=== PATIENT | female | born 1975 | race Caucasian/White ===

== ENCOUNTER → 2016-02-29 | Outpatient (CLI) | payer OTHER ==
[2015-07-06 21:51] VITALS: BP 106/67
--- NOTE | 2016-02-29 17:04 | EEG ---
DATE OF SERVICE: 02/29/2016 EEG NUMBER: 24 OBJECTIVE: This is a 40-year-old female patient with history of seizure. EEG was requested to evaluate seizure activity. METHODS: Twenty electrodes were applied according to the international 10-20 electrode placement system. EKG monitoring, hyperventilation, intermittent photic stimulation, monopolar and bipolar montages are routinely utilized. The record was obtained on a digital system with video monitoring. MEDICATION: No anti-seizure medications. FINDINGS: 1. Background: The patient was recorded in the awake and drowsy states. No sleep state was recorded. The overall background amplitude is 10-30 microvolts. A posterior dominant rhythm of 8 Hz is observed. 2. Abnormalities: No specific epileptiform discharge or electrographic seizure is seen. No focal or diffuse slowing. 3. Activation: Hyperventilation was performed with good efforts and normal response. Intermittent photic stimulation was performed with photic driving. No specific epileptiform discharge or electrographic seizure induced by hyperventilation or intermittent photic stimulation. IMPRESSION: This EEG is a normal study for the awake, drowsy and sleep states. No focal, lateralizing, specific epileptiform discharge or electrographic seizure is seen. However, a normal EEG does not rule out seizure. NANCI EARL MD DR: LISE/ko JOB#: [id number] / [id number] COREY
== END | disposition home or self-care (01) ==
LOC: RT 05:58
PROVIDERS: ATTEND Psychiatry & Neurology Neurology
DX: R56.9 Unspecified convulsions (principal)
CPT/HCPCS: 95816

== ENCOUNTER → 2016-05-23 | Outpatient (CLI) | payer OTHER ==
[2015-07-06 21:51] VITALS: BP 106/67
[2016-05-23 12:59] LABS: BARBITURATES NEG (NEG); BENZODIAZEPINES NEG (NEG); CANNABINOIDS NEG (NEG); COCAINE NEG (NEG); METHADONE NEG (NEG); OPIATES NEG (NEG); PHENCYCLIDINE NEG (NEG)
[2016-05-23 13:13] LABS: ETHANOL, URINE NEG (NEG)
[2016-05-23 13:32] LABS: GFR 62.1; POTASSIUM 4.1 mmol/L (3.5-5.1)
== END | disposition home or self-care (01) ==
LOC: LINQ 12:19
PROVIDERS: ATTEND Psychiatry & Neurology Neurology
DX: R56.9 Unspecified convulsions (principal)
CPT/HCPCS: 36415; 80051; 82565; 84520; G0481

== ENCOUNTER → 2016-06-07 | Outpatient (CLI) | payer OTHER ==
[2015-07-06 21:51] VITALS: BP 106/67
--- NOTE | 2016-06-09 14:29 | EEG ---
DATE OF SERVICE: 06/08/2016 OBJECTIVE: This is a 40-year-old female patient with history of seizure or seizure-like episodes. EEG was requested to evaluate her seizure activity. METHODS: Twenty electrodes were applied according to the international 10-20 electrode placement system. EKG monitoring, hyperventilation and intermittent photic stimulation, monopolar and bipolar montages are routinely utilized. The record was obtained on a digital system with video monitoring. This is a long-term video EEG monitoring, with a total video monitoring and EEG recording time of 24 hours from 06/07/2016 to 06/08/2016. FINDINGS: 1. Background: The patient was recorded in the awake, drowsy, and sleep states. The overall background amplitude is 10-13 microvolts. A posterior dominant rhythm of 8 Hz is observed. 2. Abnormalities: No specific epileptiform discharge or electrographic seizure is seen. No focal or diffuse slowing. A few spikes or spike-contoured waves are noted at occipital region; however, their epileptogenicity cannot be determined in this study. 3. Activation: Hyperventilation was performed with fair efforts and normal response. Intermittent photic stimulation was performed with photic driving. No specific epileptiform discharge or electrographic seizure induced by hyperventilation or intermittent photic stimulation. IMPRESSION: This is a long-term video EEG study with a total video monitoring and EEG recording time of 24 hours from 06/07/2016 to 06/08/2016. This long-term video EEG study is a borderline study for the awake, drowsy, and sleep states. A few spike or spike-contoured waves noted at the right occipital region; however, their epileptogenicity cannot be determined in this study. No focal, lateralizing, specific epileptiform discharges or electrographic seizure is seen. If the patient has further seizures, suggest repeat VEEG. NANCI EARL MD DR: LISE/ko JOB#: [id number] / [id number] COREY
== END | disposition home or self-care (01) ==
LOC: SLPLAB 06:11
PROVIDERS: ATTEND Psychiatry & Neurology Neurology
DX: R56.9 Unspecified convulsions (principal)
CPT/HCPCS: 95951

== ENCOUNTER → 2017-03-01 | Outpatient (CLI) | payer OTHER ==
[2017-03-01 11:25] LABS: BARBITURATES NEG (NEG); BENZODIAZEPINES POS (NEG); CANNABINOIDS NEG (NEG); COCAINE NEG (NEG); METHADONE NEG (NEG); OPIATES NEG (NEG); PHENCYCLIDINE NEG (NEG)
[2017-03-01 11:26] LABS: AMPHETAMINE/METHAMPHETAMINE NEG (NEG); ETHANOL, URINE NEG (NEG)
[2017-03-01 11:35] LABS: BLOOD UREA NITROGEN 16 mg/dL (7-20)
[2017-03-01 11:35] LABS: CREATININE 0.9 mg/dL (0.6-1.0); GFR 69.7
== END | disposition home or self-care (01) ==
LOC: LAB 10:50
DX: R56.9 Unspecified convulsions (principal)
CPT/HCPCS: 36415; 80307; 82565; 84520

== ENCOUNTER → 2017-04-13 | Outpatient (CLI) | payer OTHER | END | disposition home or self-care (01) | LOC: RT 11:33 | DX: R56.9 Unspecified convulsions (principal) | CPT/HCPCS: 95816 ==

== ENCOUNTER 2018-10-31 08:53 | Emergency (ER) | payer OTHER ==
[~2018-10-31] VITALS: Ht 170.2 cm; Wt 65.3 kg
[2018-10-31] MEDS ORDERED: methylPREDNISolone SOD SUCC PF 125 MG/2 ML VIAL. IV ONE (10:15)
[2018-10-31] MEDS ORDERED: diazePAM 5 MG TABLET PO ONE (10:15)
[2018-10-31] MEDS ORDERED: diphenhydrAMINE HCL 25 MG CAPSULE PO ONE (10:15)
[2018-10-31] MEDS ORDERED: PROCHLORPERAZINE 10 MG/2 ML VIAL. IV ONE (10:15)
[2018-10-31 11:05] LABS: BILIRUBIN,URINE NEGATIVE (NEG); CLARITY,URINE CLEAR; COLOR,URINE YELLOW; NITRITE,URINE NEGATIVE (NEG); PROTEIN,URINE NEGATIVE (NEG-TRACE); UROBILINOGEN,URINE 0.2 mg/dL (0.2 mg/dL)
[2018-10-31 11:07] LABS: BASO % 1 % (0-3); EOS # 0.1 x10^3/uL (0.0-0.7); EOS % 3 % (0-3); HEMATOCRIT 39.5 % (36.0-47.0); HEMOGLOBIN 13.4 g/dL (12.0-15.5); LYMPH # 1.8 x10^3/uL (1.0-4.8); LYMPH % 46 % (24-48); MEAN CORPUSCULAR HEMOGLOBIN 33 pg (25-35); MEAN CORPUSCULAR HGB CONC 34 g/dL (31-37); MEAN CORPUSCULAR VOLUME 96 fL (79-100); MONO # 0.2 x10^3/uL (0.0-1.1); MONO % 5 % (0-9); NEUT # 1.8 x10^3/uL (1.8-7.7); NEUT % 46 % (31-73); PLATELET COUNT 164 x10^3/uL (140-400); RED CELL DISTRIBUTION WIDTH 13.3 % (11.5-14.5); WHITE BLOOD COUNT 3.9 x10^3/uL (4.0-11.0)
[2018-10-31 11:14] LABS: AMPHETAMINE/METHAMPHETAMINE NEG (NEG); BARBITURATES NEG (NEG); BENZODIAZEPINES POS (NEG); CANNABINOIDS NEG (NEG); COCAINE NEG (NEG); METHADONE NEG (NEG); OPIATES NEG (NEG); PHENCYCLIDINE NEG (NEG)
[2018-10-31 11:21] LABS: BACTERIA,URINE MOD /HPF (0-FEW); SQUAMOUS EPITHELIAL CELL,UR FEW /LPF
[2018-10-31 11:52] LABS: ANION GAP 13 (6-14); BLOOD UREA NITROGEN 20 mg/dL (7-20); BUN/CREATININE RATIO 22 (6-20); CALCIUM 9.6 mg/dL (8.5-10.1); CARBON DIOXIDE 18 mmol/L (21-32); CHLORIDE 112 mmol/L (98-107); CREATININE 0.9 mg/dL (0.6-1.0); GFR 69.3; GLUCOSE 88 mg/dL (70-99); POTASSIUM 3.9 mmol/L (3.5-5.1); SODIUM 143 mmol/L (136-145)
[2018-10-31 11:59] LABS: ALBUMIN 4.1 g/dL (3.4-5.0); ALBUMIN/GLOBULIN RATIO 1.4 (1.0-1.7); ALK PHOS 53 U/L (46-116); AST (SGOT) 8 U/L (15-37); TOTAL BILIRUBIN 0.2 mg/dL (0.2-1.0)
[2018-10-31] MEDS ORDERED: CONTRAST GIVEN. MC PRN (12:00)
--- NOTE | 2018-10-31 12:00 | PHYS DOC ---
Past Medical History Past Medical History: Anxiety, Bipolar, Depression, Migraines, Seizure, Other Additional Past Medical Histor: EPILEPSY,ENDOMETROSIS Past Surgical History: Knee Replacement, Other Additional Past Surgical Histo: KNEE X 2, LAP SURG FOR ENDOMETROSIS,D&C Additional Information: 1 BLACK & MILD 3 TIMES A WEEK Alcohol Use: Rarely Drug Use: None Adult General Chief Complaint Chief Complaint: HEADACHE HPI HPI Patient is a 42 year old female with history of anxiety, bipolar, seizures, migraine headaches, who presents to the ED today complaining of 10 out of 10 generalized neck and head pain that began 2 weeks ago. Patient states when the headache and neck pain began 2 weeks ago she saw a chiropractor who manipulated her neck, she states after the manipulation the headache intensity increased from a 7 out of 10 to10 out of 10. She states she went back to the chiropractor for another visit, she states the headache and the neck pain continued to intensify after the second chiropractor visit. She is afraid the chiropractor did something bad to her neck or head. Denies any photosensitivity, denies any nausea, vomiting. Review of Systems Review of Systems Constitutional: Denies fever or chills [] Eyes: Denies change in visual acuity, redness, or eye pain [] HENT: Denies nasal congestion or sore throat [] Respiratory: Denies cough or shortness of breath [] Cardiovascular: No additional information not addressed in HPI [] GI: Denies abdominal pain, nausea, vomiting, bloody stools or diarrhea [] : Denies dysuria or hematuria [] Musculoskeletal: Reports neck pain Integument: Denies rash or skin lesions [] Neurologic: Reports headache, denies focal weakness or sensory changes [] All other systems were reviewed and found to be within normal limits, except as documented in this note. Current Medications Current Medications Current Medications Medications (Trade) Dose Ordered Sig/Jaleel Start Time Stop Time Status Last Admin Dose Admin Diazepam (Valium) 5 mg 1X ONCE 10/31/18 10:15 10/31/18 10:16 DC 10/31/18 10:57 5 MG Diphenhydramine HCl (Benadryl) 25 mg 1X ONCE 10/31/18 10:15 10/31/18 10:16 DC 10/31/18 10:57 25 MG Info (CONTRAST GIVEN -- Rx MONITORING) 1 each PRN DAILY PRN 10/31/18 12:00 11/02/18 11:59 Iohexol (Omnipaque 350 Mg/ml) 75 ml 1X ONCE 10/31/18 12:30 10/31/18 12:31 DC 10/31/18 12:14 75 ML Methylprednisolone Sodium Succinate (SOLU-Medrol 125MG VIAL) 125 mg 1X ONCE 10/31/18 10:15 10/31/18 10:16 DC 10/31/18 11:55 125 MG Prochlorperazine Edisylate (Compazine) 10 mg 1X ONCE 10/31/18 10:15 10/31/18 10:16 DC 10/31/18 11:58 10 MG Allergies Allergies Allergies Coded Allergies Type Severity Reaction Last Updated Verified Sulfa (Sulfonamide Antibiotics) Allergy Intermediate "i dont know" 05/20/15 Yes Physical Exam Physical Exam Constitutional: Well developed, well nourished, no acute distress, non-toxic appearance. [] HENT: Normocephalic, atraumatic, bilateral external ears normal, oropharynx moist, no oral exudates, nose normal. [] Eyes: PERRLA, EOMI, conjunctiva normal, no discharge. [] Neck: Diffuse paraspinal muscle tenderness throughout the posterior cervical spine, no midline cervical spine tenderness. Normal range of motion, supple, no stridor. [] Cardiovascular:Heart rate regular rhythm, no murmur [] Lungs & Thorax: Bilateral breath sounds clear to auscultation [] Abdomen: Bowel sounds normal, soft, no tenderness, no masses, no pulsatile masses. [] Skin: Warm, dry, no erythema, no rash. [] Back: No tenderness, no CVA tenderness. [] Extremities: No tenderness, no cyanosis, no clubbing, ROM intact, no edema. [] Neurologic: Alert and oriented X 3, normal motor function, normal sensory function, no focal deficits noted. Cranial nerves II through XII intact Psychologic: Affect normal, judgement normal, mood normal. [] Current Patient Data Vital Signs Vital Signs Date Time Temp Pulse Resp B/P (MAP) Pulse Ox O2 Delivery O2 Flow Rate FiO2 10/31/18 12:43 54 18 99 10/31/18 09:36 97.4 118/79 (92) Room Air 97.4 Lab Values Laboratory Tests Test 10/31/18 09:38 10/31/18 09:42 10/31/18 10:50 10/31/18 11:30 Urine Collection Type U cath Urine Color Yellow Urine Clarity Clear Urine pH 5.0 Urine Specific Vickery 1.020 Urine Protein Negative mg/dL (NEG-TRACE) Urine Glucose (UA) Negative mg/dL (NEG) Urine Ketones (Stick) Negative mg/dL (NEG) Urine Blood Moderate (NEG) Urine Nitrite Negative (NEG) Urine Bilirubin Negative (NEG) Urine Urobilinogen Dipstick 0.2 mg/dL (0.2 mg/dL) Urine Leukocyte Esterase Moderate (NEG) Urine RBC 3-5 /HPF (0-2) Urine WBC 5-10 /HPF (0-4) Urine Squamous Epithelial Cells Few /LPF Urine Bacteria Mod /HPF (0-FEW) Urine Mucus Slight /LPF Urine Opiates Screen Neg (NEG) Urine Methadone Screen Neg (NEG) Urine Barbiturates Neg (NEG) Urine Phencyclidine Screen Neg (NEG) Urine Amphetamine/Methamphetamine Neg (NEG) Urine Benzodiazepines Screen Pos (NEG) Urine Cocaine Screen Neg (NEG) Urine Cannabinoids Screen Neg (NEG) Urine Ethyl Alcohol Neg (NEG) POC Urine HCG, Qualitative Hcg negative (Negative) White Blood Count 3.9 x10^3/uL (4.0-11.0) L Red Blood Count 4.10 x10^6/uL (3.50-5.40) Hemoglobin 13.4 g/dL (12.0-15.5) Hematocrit 39.5 % (36.0-47.0) Mean Corpuscular Volume 96 fL (79-100) Mean Corpuscular Hemoglobin 33 pg (25-35) Mean Corpuscular Hemoglobin Concent 34 g/dL (31-37) Red Cell Distribution Width 13.3 % (11.5-14.5) Platelet Count 164 x10^3/uL (140-400) Neutrophils (%) (Auto) 46 % (31-73) Lymphocytes (%) (Auto) 46 % (24-48) Monocytes (%) (Auto) 5 % (0-9) Eosinophils (%) (Auto) 3 % (0-3) Basophils (%) (Auto) 1 % (0-3) Neutrophils # (Auto) 1.8 x10^3/uL (1.8-7.7) Lymphocytes # (Auto) 1.8 x10^3/uL (1.0-4.8) Monocytes # (Auto) 0.2 x10^3/uL (0.0-1.1) Eosinophils # (Auto) 0.1 x10^3/uL (0.0-0.7) Basophils # (Auto) 0.0 x10^3/uL (0.0-0.2) Sodium Level 143 mmol/L (136-145) Potassium Level 3.9 mmol/L (3.5-5.1) Chloride Level 112 mmol/L (98-107) H Carbon Dioxide Level 18 mmol/L (21-32) L Anion Gap 13 (6-14) Blood Urea Nitrogen 20 mg/dL (7-20) Creatinine 0.9 mg/dL (0.6-1.0) Estimated GFR (Cockcroft-Gault) 69.3 BUN/Creatinine Ratio 22 (6-20) H Glucose Level 88 mg/dL (70-99) Calcium Level 9.6 mg/dL (8.5-10.1) Total Bilirubin 0.2 mg/dL (0.2-1.0) Aspartate Amino Transferase (AST) 8 U/L (15-37) L Alanine Aminotransferase (ALT) < 6 U/L (14-59) L Alkaline Phosphatase 53 U/L (46-116) Total Protein 7.0 g/dL (6.4-8.2) Albumin 4.1 g/dL (3.4-5.0) Albumin/Globulin Ratio 1.4 (1.0-1.7) Ethyl Alcohol Level < 10 mg/dL (0-10) Laboratory Tests 10/31/18 10:50 Laboratory Tests 10/31/18 11:30 EKG EKG [] Radiology/Procedures Radiology/Procedures []ROCEDURE: CT ANGIOGRAPHY HEAD AND NECK Examination: CT ANGIOGRAPHY HEAD AND NECK History: Head and neck pain after seeing a chiropractor 2 weeks ago. Comparison/Correlation: 07/06/2015 CT head without contrast FINDINGS: Axial images of the head and neck were obtained following IV contrast arteriography protocol. Volume rendered and MIPS images were provided. Sagittal and coronal reformatted images were provided. Angiographic findings: The aortic arch has a typical branching pattern. There is no arch vessel stenosis. Both common carotid arteries are patent without stenosis. Both internal carotid arteries are patent without stenosis. The external carotid systems are patent. The vertebral arteries are patent. Right vertebral artery is diminutive. Its distal extent is hypoplastic and terminates as a posterior inferior cerebellar artery. The basilar artery is patent. Both posterior cerebral arteries are patent. The posterior communicating arteries are visualized. The intracranial internal carotid arteries demonstrate no stenosis. The middle cerebral arteries are patent. The anterior cerebral arteries are patent. The anterior communicating artery is visualized. Nonangiographic findings: There is no intracranial hemorrhage identified on arterial phase images provided multiple. Little-white differentiation is preserved. The ventricles are normal in size and position. The paranasal sinuses appear clear. The orbits are unremarkable. The temporal bones are unremarkable. Bone windows reveal no suspicious lesions. The lung apices demonstrate no acute abnormality. The parotid glands and submandibular glands are unremarkable. The thyroid gland demonstrates no suspicious lesions. There are no laryngeal or pharyngeal masses. There are no pathologically enlarged lymph nodes. IMPRESSION: No evidence of significant stenosis, dissection, or aneurysm. PQRS Compliance Statement - Stenosis calculations for CT, MR and conventional angiography are based upon measurement of the distal ICA diameter in accordance with the NASCET methodology. Stenosis calculations for carotid ultrasound studies are derived from validated velocity criteria which are known to correlate with the NASCET methodology. *One or more of the following individualized dose reduction techniques were utilized for this examination: 1. Automated exposure control. 2. Adjustment of the mA and/or kV according to patient size. 3. Use of iterative reconstruction technique. Electronically signed by: Cyrus Mcclendon MD (10/31/2018 12:56 PM) [facility] DICTATED and SIGNED BY: CYRUS MCCLENDON MD DATE: 10/31/18 2574 Course & Med Decision Making Course & Med Decision Making Pertinent Labs and Imaging studies reviewed. (See chart for details) This is a 42-year-old female patient who presents to the ED today complaining of pain generalized to her head and neck that began 2 weeks ago and got worse a fter having chiropractor manipulate her neck. CT angiogram neck and head are negative for any acute findings. CBC with a WBC of 3.9, CMP would not acute findings, urine analysis is noted for UTI. Dis charged on cephalexin. Given prescription for Imitrex for her pain as well as cyclobenzaprine and medrol dose park. F/u with PCP next week Dragon Disclaimer Diaz Disclaimer This electronic medical record was generated, in whole or in part, using a voice recognition dictation system. Departure Departure Impression: Primary Impression: Migraine headache Additional Impressions: Neck pain UTI (urinary tract infection) Disposition: 01 HOME, SELF-CARE Condition: STABLE Referrals: ALMITA LI MD (PCP) follow up next week Patient Instructions: Migraine Headache, Urinary Tract Infection Additional Instructions: You were evaluated in the emergency room for headache and neck pain, your CAT scan of the head and neck are negative for any acute findings. Take the prescribed medications as ordered. Follow-up with your own doctor in 1-2 weeks. Scripts Cyclobenzaprine Hcl (CYCLOBENZAPRINE HCL) 10 Mg Tablet 1 TAB PO TID, #30 TAB Prov: ADRY ELLISON APRN 10/31/18 Methylprednisolone (MEDROL) 4 Mg Tab.ds.pk 1 PKG PO UD, #1 PKG Prov: ADRY ELLISON APRN 10/31/18 Sumatriptan Succinate (IMITREX) 50 Mg Tablet 1 TAB PO UD, #9 TAB 1 Refill Prov: ADRY ELLISON APRN 10/31/18 Problem Qualifiers Primary Impression: Migraine headache Migraine type: unspecified Status migrainosus presence: without status migrainosus Intractability: not intractable Qualified Codes: G43.909 - Migraine, unspecified, not intractable, without status migrainosus Additional Impressions: UTI (urinary tract infection) Urinary tract infection type: site unspecified Hematuria presence: without hematuria Qualified Codes: N39.0 - Urinary tract infection, site not specified ADRY ELLISON APRN Oct 31, 2018 12:00
[2018-10-31 12:01] LABS: ALT (SGPT) < 6 U/L (14-59)
[2018-10-31] MEDS ORDERED: IOHEXOL 350 MG/ML 100 ML VIAL. IV ONE (12:30)
--- NOTE | 2018-10-31 12:58 | RAD ---
Examination: CT ANGIOGRAPHY HEAD AND NECK History: Head and neck pain after seeing a chiropractor 2 weeks ago. Comparison/Correlation: 07/06/2015 CT head without contrast FINDINGS: Axial images of the head and neck were obtained following IV contrast arteriography protocol. Volume rendered and MIPS images were provided. Sagittal and coronal reformatted images were provided. Angiographic findings: The aortic arch has a typical branching pattern. There is no arch vessel stenosis. Both common carotid arteries are patent without stenosis. Both internal carotid arteries are patent without stenosis. The external carotid systems are patent. The vertebral arteries are patent. Right vertebral artery is diminutive. Its distal extent is hypoplastic and terminates as a posterior inferior cerebellar artery. The basilar artery is patent. Both posterior cerebral arteries are patent. The posterior communicating arteries are visualized. The intracranial internal carotid arteries demonstrate no stenosis. The middle cerebral arteries are patent. The anterior cerebral arteries are patent. The anterior communicating artery is visualized. Nonangiographic findings: There is no intracranial hemorrhage identified on arterial phase images provided multiple. Little-white differentiation is preserved. The ventricles are normal in size and position. The paranasal sinuses appear clear. The orbits are unremarkable. The temporal bones are unremarkable. Bone windows reveal no suspicious lesions. The lung apices demonstrate no acute abnormality. The parotid glands and submandibular glands are unremarkable. The thyroid gland demonstrates no suspicious lesions. There are no laryngeal or pharyngeal masses. There are no pathologically enlarged lymph nodes. IMPRESSION: No evidence of significant stenosis, dissection, or aneurysm. PQRS Compliance Statement - Stenosis calculations for CT, MR and conventional angiography are based upon measurement of the distal ICA diameter in accordance with the NASCET methodology. Stenosis calculations for carotid ultrasound studies are derived from validated velocity criteria which are known to correlate with the NASCET methodology. *One or more of the following individualized dose reduction techniques were utilized for this examination: 1. Automated exposure control. 2. Adjustment of the mA and/or kV according to patient size. 3. Use of iterative reconstruction technique. Electronically signed by: Cyrus Chirinos MD (10/31/2018 12:56 PM) [facility]
[2018-10-31] MEDS ORDERED: METH4TAB2 PO (13:55)
[2018-10-31] MEDS ORDERED: CYCL10TA2 PO (13:55)
[2018-10-31] MEDS ORDERED: SUMA50TA3 PO (13:55)
[2018-10-31] MEDS ORDERED: SUMAtriptan SUCCINATE 25 MG TABLET PO ONE (14:00)
[2018-10-31 14:13] VITALS: BP 113/73
== END 2018-10-31 14:23 | disposition home or self-care (01) ==
LOC: ER 08:53
DX: G43.909 Migraine, unspecified, not intractable, without status migrainosus (principal); N39.0 Urinary tract infection, site not specified; M54.2 Cervicalgia; G40.909 Epilepsy, unspecified, not intractable, without status epilepticus; F31.9 Bipolar disorder, unspecified; Z88.2 Allergy status to sulfonamides
CPT/HCPCS: 36415; 70496; 70498; 80053; 80307; 81001; 81025; 85025; 96374; 96375; 99285; G0480; J0780; J2930; Q0163; Q9967

== ENCOUNTER 2019-01-20 11:31 | Emergency (ER) | payer OTHER ==
[~2019-01-20] VITALS: Ht 170.2 cm; Wt 63.5 kg
[~2019-01-20 11:31] MED LIST: CYCL10TA2 PO; METH4TAB2 PO; SUMA50TA3 PO
[2019-01-20 12:24] VITALS: BP 130/78
[2019-01-20] MEDS ORDERED: KETOROLAC 30 MG/ML VIAL. IM STA (12:24)
[2019-01-20] MEDS ORDERED: HYDROcodone/APAP 5/325MG 1 TAB TABLET PO STA (12:24)
--- NOTE | 2019-01-20 12:30 | PHYS DOC ---
Past Medical History Past Medical History: Anxiety, Bipolar, Depression, Migraines, Seizure, Other Additional Past Medical Histor: EPILEPSY,ENDOMETROSIS Past Surgical History: Knee Replacement, Other Additional Past Surgical Histo: KNEE X 2, LAP SURG FOR ENDOMETROSIS,D&C Alcohol Use: Rarely Drug Use: None Adult General Chief Complaint Chief Complaint: RIB PAIN HPI HPI Patient is a 43 year old female who presents with with a fall that happened around 8:00 this morning. The patient states she fell down 2-3 steps after tripping over her cat. The patient states that she has severe pain when she takes a deep breath and rates her pain as 10 in severity and sharp. She states she took 400 mg of Advil after this happened. She states this is not helped. She states that the location of the pain is left rib pain. Review of Systems Review of Systems Constitutional: Denies fever or chills [] Eyes: Denies change in visual acuity, redness, or eye pain [] HENT: Denies nasal congestion or sore throat [] Respiratory: Reports rib pain when takes deep breath. Cardiovascular: No additional information not addressed in HPI [] GI: Denies abdominal pain, nausea, vomiting, bloody stools or diarrhea [] : Denies dysuria or hematuria [] Musculoskeletal: Denies back pain or joint pain [] Integument: Denies rash or skin lesions [] Neurologic: Denies headache, focal weakness or sensory changes [] Endocrine: Denies polyuria or polydipsia [] Complete systems were reviewed and found to be within normal limits, except as documented in this note. Current Medications Current Medications Current Medications Medications (Trade) Dose Ordered Sig/Jaleel Start Time Stop Time Status Last Admin Dose Admin Acetaminophen/ Hydrocodone Bitart (Lortab 5/325) 1 tab 1X STAT 01/20/19 12:24 01/20/19 12:27 DC 01/20/19 12:53 1 TAB Ketorolac Tromethamine (Toradol 30mg Vial) 30 mg 1X STAT 01/20/19 12:24 01/20/19 12:27 DC 01/20/19 12:54 30 MG Allergies Allergies Allergies Coded Allergies Type Severity Reaction Last Updated Verified Sulfa (Sulfonamide Antibiotics) Allergy Intermediate "i dont know" 05/20/15 Yes Physical Exam Physical Exam Constitutional: Well developed, well nourished, no acute distress, non-toxic appearance. [] Eyes: PERRLA, EOMI, conjunctiva normal, no discharge. [] Neck: Normal range of motion, no tenderness, supple, no stridor. [] Cardiovascular:Heart rate regular rhythm, no murmur [] Lungs & Thorax: Bilateral breath sounds clear to auscultation [] Back: Tenderness to L rib. Neurologic: Alert and oriented X 3, normal motor function, normal sensory function, no focal deficits noted. [] Psychologic: Affect normal, judgement normal, mood normal. [] Current Patient Data Vital Signs Vital Signs Date Time Temp Pulse Resp B/P (MAP) Pulse Ox O2 Delivery O2 Flow Rate FiO2 01/20/19 12:24 97.7 65 18 130/78 (95 100 Room Air 97.7 EKG EKG [] Radiology/Procedures Radiology/Procedures [][facility] [address] [place] [address] IMAGING REPORT Signed PATIENT: CAREN RASMUSSEN ACCOUNT: [id number] : 1975 LOCATION: ER AGE: 43 SEX: F EXAM STATUS: REG ER ORD. PHYSICIAN: ALISIA JUAREZ APRN REASON: fall PROCEDURE: RIBS LEFT AND PA CHEST EXAM: Chest and left ribs, 5 views. HISTORY: Fall. Pain. COMPARISON: None. FINDINGS: A frontal view of the chest and 4 views of the left ribs are obtained. There is no infiltrate, pleural effusion or pneumothorax. The heart is normal in size. No displaced fracture is seen. IMPRESSION: No acute pulmonary or osseous finding. Electronically signed by: Monica Chong MD (01/20/2019 1:16 PM) [facility] DICTATED and SIGNED BY: MONICA CHONG MD DATE: 01/20/19 8989 Course & Med Decision Making Course & Med Decision Making Pertinent Labs and Imaging studies reviewed. (See chart for details) Will give supportive care. Will also get Chest x-ray and give incentive spirometer. Chest x-ray is negative. Will write script for [place] for pain. Dragon Disclaimer Dragon Disclaimer This electronic medical record was generated, in whole or in part, using a voice recognition dictation system. Departure Departure Impression: Primary Impression: Fall Disposition: 01 HOME, SELF-CARE Condition: STABLE Referrals: JUSTICE RIDER MD (PCP) Patient Instructions: Fall Prevention and Home Safety Additional Instructions: Thank you for visiting [facility]. We appreciate you trusting us with your care. If any additional problems come up don't hesitate to return to visit us. Please follow up with your primary care provider so they can plan additional care if needed and know about the problem that you had. If symptoms worsen come back to the Emergency Department. Any concerning symptoms that start such as chest pain, shortness of air, weakness or numbness on one side of the body, running high fevers or any other concerning symptoms return to the ER. Please fill your medications at any pharmacy and follow the prescription instructions. Please use the incentive spirometer as directed to prevent from developing pneumonia. Scripts Hydrocodone/Apap 5-325 (NORCO 5-325 TABLET) 1 Each Tablet 1 TAB PO PRN Q6HRS PRN for PAIN for 3 Days, #10 TAB 0 Refills Prov: ALISIA JUAREZ APRN 01/20/19 Problem Qualifiers Primary Impression: Fall Encounter type: initial encounter Qualified Codes: W19.XXXA - Unspecified fall, initial encounter ALISIA JUAREZ APRN Jan 20, 2019 12:30
--- NOTE | 2019-01-20 13:19 | RAD ---
EXAM: Chest and left ribs, 5 views. HISTORY: Fall. Pain. COMPARISON: None. FINDINGS: A frontal view of the chest and 4 views of the left ribs are obtained. There is no infiltrate, pleural effusion or pneumothorax. The heart is normal in size. No displaced fracture is seen. IMPRESSION: No acute pulmonary or osseous finding. Electronically signed by: Monica Vieyra MD (01/20/2019 1:16 PM) [place] [id number]
[2019-01-20] MEDS ORDERED: HYDR-3164 PO (13:38)
== END 2019-01-20 13:58 | disposition home or self-care (01) ==
LOC: ER 11:31
DX: R07.81 Pleurodynia (principal); G89.11 Acute pain due to trauma; F41.9 Anxiety disorder, unspecified; F31.9 Bipolar disorder, unspecified; G43.909 Migraine, unspecified, not intractable, without status migrainosus; G40.909 Epilepsy, unspecified, not intractable, without status epilepticus; Z88.2 Allergy status to sulfonamides; W18.09XA Striking against other object with subsequent fall, initial encounter; Y93.89 Activity, other specified; Y92.89 Other specified places as the place of occurrence of the external cause; Y99.8 Other external cause status
CPT/HCPCS: 71101; 96372; 99284; G0238; J1885

== ENCOUNTER → 2019-01-23 | Outpatient (CLI) | payer OTHER ==
[2019-01-20 12:24] VITALS: BP 130/78
[~2019-01-23] MED LIST changes: +HYDR-3164 PO
--- NOTE | 2019-01-23 16:54 | RAD ---
DATE: 01/23/2019. EXAM: DIGITAL DIAGNOSTIC BILATERAL, BREAST RIGHT. HISTORY: Palpable focus at the right o'clock position. COMPARISON: This is the baseline study. This study was interpreted with the benefit of Computerized Aided Detection (CAD). FINDINGS: Breast Density: DENSE The breast parenchyma is dense, which could reduce the sensitivity of mammography. Breast parenchyma level density D.. There is a partially circumscribed, partially obscured nodule in the right subareolar distribution best seen on the MLO projection. There are no suspicious microcalcifications or architectural distortion. There is no clearly suspicious finding on the left. Sonography of the right breast reveals multiple benign cysts. At the 8:00 position at the site of concern, a mildly complicated cyst measures 5 x 5 x 3 m. The palpable focus may not correlate with this lesion, but rather a surrounding region of dense normal parenchyma. Other cysts scattered elsewhere measure up to 8 x 7 mm at the 1:00 position 3 cm from the nipple, and 10 x 7 mm at the 9:00 retroareolar position. BI-RADS CATEGORY: 2 BENIGN FINDING(S). RECOMMENDED FOLLOW-UP: 12M 12 MONTH FOLLOW-UP. 1. Recommend ongoing clinical follow-up of palpable foci. Screening mammography can be performed in one year. PQRS compliance statement: Patient information was entered into a reminder system with a target due date 01/24/2020 for the next mammogram. Mammography is a sensitive method for finding small breast cancers, but it does not detect them all and is not a substitute for careful clinical examination. A negative mammogram does not negate a clinically suspicious finding and should not result in delay in biopsying a clinically suspicious abnormality. "Our facility is accredited by the [employer] Mammography [employer]."
== END | disposition home or self-care (01) ==
LOC: MAMMO 10:24
PROVIDERS: ATTEND Family Medicine
DX: N60.01 Solitary cyst of right breast (principal)
CPT/HCPCS: 76641; 77066

== ENCOUNTER → 2020-03-08 | Outpatient (CLI) | payer OTHER ==
--- NOTE | 2020-03-09 14:02 | RAD ---
DATE: 03/08/2020 3:16 PM EXAM: DIGITAL SCREEN BILAT W/CAD HISTORY: Screening COMPARISON: 01/23/2019 Bilateral full field craniocaudal and mediolateral oblique images were obtained using digital technique. This study was interpreted with the benefit of Computerized Aided Detection (CAD). FINDINGS: Breast Density: DENSE The breast Parenchyma is dense, which could reduce the sensitivity of mammography. Breast parenchyma level density D. No suspicious masses, microcalcifications or architectural distortion is present to suggest malignancy in either breast. The visualized axillae are unremarkable. IMPRESSION: No mammographic evidence of malignancy. BI-RADS CATEGORY: 1 NEGATIVE RECOMMENDED FOLLOW-UP: 12M 12 MONTH FOLLOW-UP Annual screening mammography is recommended, unless clinically indicated sooner based on symptoms or change in physical exam. PQRS compliance statement: Patient information was entered into a reminder system with a target due date for the next mammogram. Mammography is a sensitive method for finding small breast cancers, but it does not detect them all and is not a substitute for careful clinical examination. A negative mammogram does not negate a clinically suspicious finding and should not result in delay in biopsying a clinically suspicious abnormality. "Our facility is accredited by the [employer] Mammography [employer]."
== END ==
LOC: MAMMO 15:12
PROVIDERS: ATTEND Family Medicine
DX: Z12.31 Encounter for screening mammogram for malignant neoplasm of breast (principal)
CPT/HCPCS: 77067

== ENCOUNTER 2021-02-16 14:00 | Emergency (ER) | payer OTHER ==
[~2021-02-16] VITALS: Ht 165.1 cm; Wt 75.0 kg
[~2021-02-16 14:00] MED LIST changes: +CYCL10TA19 PO; -CYCL10TA2 PO
--- NOTE | 2021-02-16 14:59 | RAD ---
Chest radiograph 02/16/2021 2:42 PM INDICATION: Chest pain COMPARISON: 01/20/2019 TECHNIQUE: Frontal and lateral views of the chest are provided. FINDINGS: The cardiomediastinal silhouette is within normal limits. There are no pleural effusions. There is no pulmonary vascular congestion. There is no pneumothorax. The lungs are clear. No significant osseous abnormality is identified. IMPRESSION: No acute cardiopulmonary process. Electronically signed by: Myra Penny MD (02/16/2021 2:56 PM) [facility]
--- NOTE | 2021-02-16 15:19 | PHYS DOC ---
Past Medical History Past Medical History: Anxiety, Bipolar, Depression, Migraines, Seizure, Other Additional Past Medical Histor: EPILEPSY,ENDOMETROSIS (AMI MORFIN APRN) Past Surgical History: No Surgical History Additional Past Surgical Histo: KNEE X 2, LAP SURG FOR ENDOMETROSIS,D&C (AMI MORFIN APRN) Smoking Status: Current Every Day Smoker Alcohol Use: Rarely Drug Use: None (AMI MORFIN APRN) General Adult EDM: Chief Complaint: CHEST PAIN HPI: HPI: Patient is a 45-year-old female that presents today with upper chest wall pain. Patient states the pain started early this morning after she experienced a seizure. Patient states she has seizures on a similar regular basis she said her last seizure was about 4 months ago but they have been adjusting her medications she sees Dr. Tyler in the office. She states that after her seizure she has been experiencing upper chest wall pain. She does state that she tested positive for influenza A last week did test negative for COVID 19, and states that she has been doing a lot of coughing over the past 7 days. Patient denies fever and chills or shortness of air. Patient does state that she has had 2 of her COVID vaccines she has not had the booster at this time she is not sure if she is 6 months out from her last injection. (AMI MORFIN APRN) Review of Systems: Review of Systems: Constitutional: Denies fever or chills. [] Eyes: Denies change in visual acuity. [] HENT: Denies nasal congestion or sore throat. [] Respiratory: Cough Cardiovascular: Upper chest wall pain GI: Denies abdominal pain, nausea, vomiting, bloody stools or diarrhea. [] : Denies dysuria. [] Musculoskeletal: Denies back pain or joint pain. [] Integument: Denies rash. [] Neurologic: Denies headache, focal weakness or sensory changes. [] Endocrine: Denies polyuria or polydipsia. [] Lymphatic: Denies swollen glands. [] Psychiatric: Denies depression or anxiety. [] (AMI MORFIN APRN) Heart Score: C/O Chest Pain: N/A Risk Factors: Risk Factors: DM, Current or recent (<one month) smoker, HTN, HLP, family history of CAD, obesity. Risk Scores: Score 0 - 3: 2.5% MACE over next 6 weeks - Discharge Home Score 4 - 6: 20.3% MACE over next 6 weeks - Admit for Clinical Observation Score 7 - 10: 72.7% MACE over next 6 weeks - Early Invasive Strategies (AMI MORFIN APRN) Allergies: Allergies: Allergies Coded Allergies Type Severity Reaction Last Updated Verified Sulfa (Sulfonamide Antibiotics) Allergy Intermediate "i dont know" 05/20/15 Yes (AMI MORFIN APRN) Physical Exam: PE: Constitutional: Well developed, well nourished, no acute distress, non-toxic appearance. [] HENT: Normocephalic, atraumatic, bilateral external ears normal, oropharynx moist, no oral exudates, nose normal. [] Eyes: PERRLA, EOMI, conjunctiva normal, no discharge. [] Neck: Normal range of motion, no tenderness, supple, no stridor. [] Cardiovascular:Heart rate regular rhythm, no murmur [] Lungs & Thorax: Bilateral breath sounds clear to auscultation, reproducible chest wall pain with deep inspiration and with palpation to the upper chest area. [] Abdomen: Bowel sounds normal, soft, no tenderness, no masses, no pulsatile masses. [] Skin: Warm, dry, no erythema, no rash. [] Back: No tenderness, no CVA tenderness. [] Extremities: No tenderness, no cyanosis, no clubbing, ROM intact, no edema. [] Neurologic: Alert and oriented X 3, normal motor function, normal sensory function, no focal deficits noted. [] Psychologic: Affect normal, judgement normal, mood anxious. [] (AMI MORFIN BIOCHEMISTRY PROFESSOR) Current Patient Data: Vital Signs: Vital Signs Date Time Temp Pulse Resp B/P (MAP) Pulse Ox O2 Delivery O2 Flow Rate FiO2 02/16/21 15:58 94 14 113/63 (80) 99 Room Air 02/16/21 15:33 108 16 113/63 (80) 100 Room Air 02/16/21 14:16 98.2 107 18 129/78 (95) 98 Room Air 98.2 Vital Signs Date Time Temp Pulse Resp B/P (MAP) Pulse Ox O2 Delivery O2 Flow Rate FiO2 02/16/21 14:16 98.2 107 18 129/78 (95) 98 Room Air 98.2 (AMI MORFIN APRN) EKG: EKG: [] (AMI MORFIN APRN) Radiology/Procedures: Radiology/Procedures: REASON: chest pain PROCEDURE: CHEST PA & LATERAL Chest radiograph 02/16/2021 2:42 PM INDICATION: Chest pain COMPARISON: 01/20/2019 TECHNIQUE: Frontal and lateral views of the chest are provided. FINDINGS: The cardiomediastinal silhouette is within normal limits. There are no pleural effusions. There is no pulmonary vascular congestion. There is no pneumothorax. The lungs are clear. No significant osseous abnormality is identified. IMPRESSION: No acute cardiopulmonary process. Electronically signed by: Myra Penny MD (02/16/2021 2:56 PM) [facility] [] (AMI MORFIN APRN) Course & Med Decision Making: Course & Med Decision Making Pertinent Labs and Imaging studies reviewed. (See chart for details) 1546 did talk to patient at length regarding upper chest wall pain in the ability to reproduce it. Patient states that normally after a seizure she is somewhat anxious and she feels that she is pretty anxious today at this time, she does see a mental health professional for her anxiety and bipolar disorder and had some medication adjustments done February 09 of this year. Do not feel this is cardiac in nature feel its more related to costochondritis type things. We will discharge patient to home and have her follow-up with her primary care physician if pain is not improved. We will also order some Vistaril for anxiety, I did inform the patient to follow-up with her mental health professional to let her know that her anxiety is worsened. Also instructed patient to call her neurologist to let them know that she has had a seizure today and they may want to do some medication adjustments. Patient verbalized understanding of all discharge instruction and is agreeable to the plan of care. 02/17/2021 AT 1420 Was brought to my attention by the nurse esthetician and manager medical spa at [facility] that this patient had the wrong prescription called in for her, I did call the patient at this time to tell her not to take the hYDRALAZINE and I did call her pharmacy and order Hydroxyzine 50mg take one tablet every hours as needed for anxiety with no refills. Patient did verbalized understanding of the need to dischard the hydralazine RX. I call the [facility] at [phone]. (AMI MORFIN BIOCHEMISTRY PROFESSOR) Course & Med Decision Making On 02/17/2021 at 1345 received phone call from [facility] pharmacy pharmacist concerning patient's prescription for hydralazine 100 mg p.o. tablets, the pharmacist reported they have filled the prescription and the patient left their pharmacy with prescription in hand, upon review it was noticed hydralazine 100 mg p.o. tablets for anxiety, upon chart review of ED providers notes on MDM it was charted ED provider intended to prescribe hydroxyzine tablets for anxiety. Reviewed case with current ED attending physician Dr. Montoya, prescription changed to hydroxyzine 25 mg p.o. tablets, attempted to contact patient on phone number reported on patient's demographic data, did not answer phone, there was no voicemail set up to leave voicemail for return call. Alerted ED charge nurse Ness RN to have letter sent to patient's home address regarding medication change. [facility] pharmacist reports they are also attempting to contact patient regarding medication change. [facility] pharmacist reports if they are successful in contacting patient and patient did in fact take medication will recommend return to ER for evaluation. (ALISIA NUNEZ BIOCHEMISTRY PROFESSOR) Dragon Disclaimer: Diaz Disclaimer: This electronic medical record was generated, in whole or in part, using a voice recognition dictation system. (AMI MORFIN BIOCHEMISTRY PROFESSOR) Departure Departure Impression: Primary Impression: Chest wall pain Additional Impression: Anxiety Disposition: 01 HOME / SELF CARE / HOMELESS Condition: STABLE Referrals: JUSTICE RIDER MD (PCP) Patient Instructions: Anxiety and Panic Attacks, Chest Wall Pain Additional Instructions: Take your medications at home as prescribed Follow-up with your neurologist in the a.m. to let them know that you had a seizure today they may want to make some medication adjustments Follow-up with your primary care physician in the next 3 to 5 days if your pain is not improving. Vistaril take 1 tablet every 6 hours as needed for anxiety, may use with caution can cause drowsiness. Motrin 600 mg take 1 tablet every 6 hours as needed for pain Return to the emergency department if pain worsens or changes in any way. Scripts Hydralazine Hcl (HYDRALAZINE HCL) 100 Mg Tablet 1 TAB PO PRN Q6HRS PRN for ANXIETY / AGITATION, #20 TAB 5 Refills Prov: AMI MORFIN BIOCHEMISTRY PROFESSOR 02/16/21 Ibuprofen (IBUPROFEN) 600 Mg Tablet 600 MG PO PRN Q6HRS PRN for INFLAMMATION, #20 TAB Prov: AMI MORFIN BIOCHEMISTRY PROFESSOR 02/16/21 AMI MORFIN BIOCHEMISTRY PROFESSOR Feb 16, 2021 15:19 ALISIA NUNEZ BIOCHEMISTRY PROFESSOR Feb 17, 2021 14:10
[2021-02-16] MEDS ORDERED: HYDR100T24 PO (15:54)
[2021-02-16] MEDS ORDERED: IBUP-1007 PO (15:54)
[2021-02-16 15:58] VITALS: BP 113/63
== END 2021-02-16 16:01 | disposition home or self-care (01) ==
LOC: ER 14:00
DX: R07.89 Other chest pain (principal); F41.9 Anxiety disorder, unspecified; F31.9 Bipolar disorder, unspecified; G43.909 Migraine, unspecified, not intractable, without status migrainosus; G40.909 Epilepsy, unspecified, not intractable, without status epilepticus; F17.200 Nicotine dependence, unspecified, uncomplicated; Z88.2 Allergy status to sulfonamides
CPT/HCPCS: 71046; 99284